=== PATIENT | female | born 1985 | race Two or more races ===

== ENCOUNTER 2017-05-06 16:43 | Emergency (ER) | payer SELFPAY ==
[~2017-05-06] VITALS: Ht 160 cm; Wt 54.4 kg
[2017-05-06 16:51] VITALS: BP 126/73
[2017-05-06] MEDS ORDERED: BACLOFEN 10 MG TAB PO ONE (20:30)
== END 2017-05-06 20:30 | disposition home or self-care (01) ==
LOC: ER 16:47
DX: M79.1 Myalgia (principal); J06.9 Acute upper respiratory infection, unspecified
CPT/HCPCS: 81025

== ENCOUNTER 2020-09-05 13:02 | Emergency (ER) | payer MEDICAID, OTHER ==
[~2020-09-05] VITALS: Ht 160 cm; Wt 59.0 kg
[2020-09-05 13:06] VITALS: BP 139/86
== END 2020-09-05 15:14 | disposition home or self-care (01) ==
LOC: ER 13:02
DX: M25.511 Pain in right shoulder (principal); M62.838 Other muscle spasm; M54.2 Cervicalgia; R20.0 Anesthesia of skin
CPT/HCPCS: 73030; 73060